=== PATIENT | female | born 1990 | race Caucasian/White ===

== ENCOUNTER 2016-11-22 11:13 | Emergency (ER) | payer OTHER, MEDICAID ==
[~2016-11-22] VITALS: Ht 165.1 cm; Wt 51.0 kg
[~2016-11-22 11:13] MED LIST: AMOXICILLIN500 MG PO; CIPROFLOXACN500 MG PO
[2016-11-22 11:24] VITALS: BP 131/78
== END 2016-11-22 12:28 | disposition home or self-care (01) | DRG 605 ==
LOC: ED 11:13
PROC: 0HQFXZZ Repair Right Hand Skin, External Approach (ICD-10-PCS; principal; 2016-11-22)
DX: S61.411A Laceration without foreign body of right hand, initial encounter (principal); W25.XXXA Contact with sharp glass, initial encounter; Y93.G1 Activity, food preparation and clean up; Y92.000 Kitchen of unspecified non-institutional (private) residence as the place of occurrence of the external cause